=== PATIENT | female | born 1945 | race Caucasian/White ===

== ENCOUNTER 2021-09-13 17:52 | Emergency (ER) | payer MEDICARE ==
[2021-09-13] MEDS ORDERED: Sodium Chloride 0.9% 100 ML BAG IVPB ONE (17:53)
[2021-09-13] MEDS ORDERED: Iopamidol 370 76% 125 ML VIAL FS ONE (17:53)
[2021-09-13 19:09] LABS: #Eosinphils 0.1 thou/uL (0.0-0.7); #Lymphocytes 1.1 thou/uL (1.20-3.40); #Monocytes 0.6 thou/uL (0.11-0.59); %Basophils 0.4 % (0.0-1.0); %Eosinophils 0.9 % (0.0-10.0); %Monocytes 6.2 % (0.0-10.0); %Neutrophils 81.5 % (42.0-75.0); Mean Corpuscular HGB CONC 32.4 g/dL (32.0-36.0); Mean Corpuscular Volume 95.7 fL (78.0-98.0); Mean Platelet Volume 6.3 fL (7.4-10.4); Platelet Count 273 thou/uL (130-400); Red Blood Cell (RBC) Count 3.56 mill/uL (4.20-5.40); White Blood Cell (WBC) Count 9.8 thou/uL (4.8-10.8)
[2021-09-13 19:24] LABS: ALT (SGPT) 31 U/L (8-55); AST (SGOT) 30 U/L (5-34); Albumin 3.8 g/dL (3.4-4.8); Alkaline Phosphatase 106 U/L (40-110); Anion Gap 16 mmol/L (10-20); BUN (Urea Nitrogen) 16 mg/dL (9.8-20.1); Bilirubin, Total 0.6 mg/dL (0.2-1.2); CK (CPK) 79 U/L (29-168); Calc. Creatinine Clearance 0 mL/min (70-130); Calcium 8.7 mg/dL (7.8-10.44); Carbon Dioxide 32 mmol/L (23-31); Chloride 92 mmol/L (98-107); Globulin 3.3 g/dL (2.4-3.5); Glucose 112 mg/dL (83-110); Potassium 3.2 mmol/L (3.5-5.1); Protein, Total 7.1 g/dL (5.8-8.1); Sodium 137 mmol/L (136-145)
[2021-09-13 19:31] LABS: CKMB 0.6 ng/mL (0-6.6)
[2021-09-13] MEDS ORDERED: Enoxaparin Sodium 80 MG/0.8 ML SYRINGE ONE (21:16)
[2021-09-13] MEDS ORDERED: Apixaban 5 MG TAB PO SCH (23:15)
== END 2021-09-14 00:03 | disposition home or self-care (01) ==
LOC: MADERS 17:52
DX: I26.99 Other pulmonary embolism without acute cor pulmonale (principal); Z47.32 Aftercare following explantation of hip joint prosthesis; I10 Essential (primary) hypertension; E78.00 Pure hypercholesterolemia, unspecified; E03.9 Hypothyroidism, unspecified; Z79.82 Long term (current) use of aspirin; Z79.899 Other long term (current) drug therapy
CPT/HCPCS: 71045; 71275; 80053; 82550; 82553; 84484; 85025; 85379; 93005; 94760; 96372; J1650; Q9967

== ENCOUNTER 2025-04-05 14:16 | Inpatient (IN) | payer MEDICARE ==
[2025-04-05 14:30] VITALS: BMI 28.3
[2025-04-05] MEDS: HYDROcodone/Acetaminophen 5/325 mg Tablet PO PRN (16:42)
[2025-04-05] MEDS: Methocarbamol 500 MG TAB PO PRN (16:42)
[2025-04-05] MEDS: Senokot S 8.6-50 MG TAB PO SCH (20:41)
[2025-04-05] MEDS: Apixaban 5 MG TAB PO SCH (20:41)
[2025-04-06] MEDS: Pantoprazole 40 MG DR.TAB PO SCH (07:48)
[2025-04-06 08:14] LABS: Hematocrit 28.8 % (36.0-47.0); Hemoglobin 9.1 g/dL (12.0-16.0); Mean Corpuscular Hemoglobin 29.5 pg (27.0-31.0); Mean Corpuscular Volume 93.4 fl (78.0-98.0); Platelet Count 262 10x3/uL (130-400); Red Blood Cell (RBC) Count 3.08 mill/uL (4.20-5.40); White Blood Cell (WBC) Count 8.2 10x3/uL (4.8-10.8)
[2025-04-06] MEDS: Allopurinol 100 MG TAB PO SCH (08:55)
[2025-04-06] MEDS: Lisinopril 20 MG TAB PO SCH (08:55)
[2025-04-06] MEDS: Ferrous Gluconate 324 MG TAB PO SCH (08:55)
[2025-04-06] MEDS ORDERED: Non-Formulary Item 1 EACH (Levothyroxine Sodium [Levothyroxine Sodium] 125 MCG Capsule) PO SCH (09:00)
[2025-04-10] MEDS: Acetaminophen 325 MG TAB PO PRN (21:18)
[2025-04-10] MEDS: Pantoprazole 40 MG DR.TAB PO SCH (21:21)
[2025-04-11 05:09] LABS: Calc. Creatinine Clearance 50.0 mL/min (70-130)
[2025-04-13 04:44] LABS: Hematocrit 27.5 % (36.0-47.0); Hemoglobin 8.7 g/dL (12.0-16.0); Platelet Count 302 10x3/uL (130-400)
[2025-04-13 08:41] VITALS: BMI 29.5
[2025-04-16] MEDS: Senokot S 8.6-50 MG TAB PO PRN (08:08)
[2025-04-19] MEDS: Ferrous Gluconate 324 MG TAB PO SCH (08:35)
[2025-04-20 05:16] LABS: #Basophils 0.0 thou/uL (0.0-0.2); #Eosinophils 0.2 thou/uL (0.0-0.7); #Lymphocytes 1.4 thou/uL (1.20-3.40); #Monocytes 0.5 thou/uL (0.11-0.59); #Neutrophils 3.2 thou/uL (1.40-6.50); %Basophils 0.7 % (0.0-1.0); %Eosinophils 4.0 % (0.0-10.0); %Lymphocytes 26.4 % (21.0-51.0); %Monocytes 9.3 % (0.0-10.0); %Neutrophils 59.6 % (42.0-75.0); Hematocrit 24.4 % (36.0-47.0); Hemoglobin 7.9 g/dL (12.0-16.0); Mean Corpuscular Hemoglobin 30.4 pg (27.0-31.0); Mean Corpuscular Volume 94.0 fl (78.0-98.0); Platelet Count 256 10x3/uL (130-400); Red Blood Cell (RBC) Count 2.59 mill/uL (4.20-5.40); White Blood Cell (WBC) Count 5.3 10x3/uL (4.8-10.8)
[2025-04-20] MEDS: Lisinopril 10 MG TAB PO SCH (08:53)
[2025-04-22 04:58] LABS: Hematocrit 25.2 % (36.0-47.0); Hemoglobin 8.0 g/dL (12.0-16.0); Mean Corpuscular Hemoglobin 30.0 pg (27.0-31.0); Mean Corpuscular Volume 94.2 fl (78.0-98.0); Platelet Count 257 10x3/uL (130-400); Red Blood Cell (RBC) Count 2.68 mill/uL (4.20-5.40); White Blood Cell (WBC) Count 5.0 10x3/uL (4.8-10.8)
[2025-04-23 07:25] VITALS: BP 115/71; TEMP 98.1
== END 2025-04-23 13:55 | disposition home or self-care (01) | DRG 945 ==
LOC: MADMS 14:16
PROVIDERS: ADMIT Family Medicine; ATTEND Family Medicine
PROC: F07Z9ZZ Gait Training/Functional Ambulation Treatment (ICD-10-PCS; principal; 2025-04-05)
DX: R53.81 Other malaise (principal); D62 Acute posthemorrhagic anemia; E78.5 Hyperlipidemia, unspecified; I12.9 Hypertensive chronic kidney disease with stage 1 through stage 4 chronic kidney disease, or unspecified chronic kidney disease; M10.9 Gout, unspecified; N18.9 Chronic kidney disease, unspecified; Z96.641 Presence of right artificial hip joint; Z98.890 Other specified postprocedural states; Z91.81 History of falling; Z87.81 Personal history of (healed) traumatic fracture; I25.10 Atherosclerotic heart disease of native coronary artery without angina pectoris; F41.9 Anxiety disorder, unspecified; E03.9 Hypothyroidism, unspecified; Z98.891 History of uterine scar from previous surgery; N99.89 Other postprocedural complications and disorders of genitourinary system; R33.8 Other retention of urine; Z97.8 Presence of other specified devices; R26.89 Other abnormalities of gait and mobility; Z79.890 Hormone replacement therapy; Z79.899 Other long term (current) drug therapy
CPT/HCPCS: 36415; 82565; 85014; 85018; 85025; 85027; 85049